=== PATIENT | female | born 1930 | race Caucasian/White ===

== ENCOUNTER 2016-06-13 10:00 | Outpatient (CLI) | payer MEDICARE, OTHER | END 2016-06-13 10:01 | disposition home or self-care (01) | DX: N39.0 Urinary tract infection, site not specified (principal) ==

== ENCOUNTER 2016-06-28 08:19 | Outpatient (CLI) | payer MEDICARE, OTHER | END 2016-06-28 08:20 | disposition home or self-care (01) | DX: Z71.3 Dietary counseling and surveillance (principal); E11.65 Type 2 diabetes mellitus with hyperglycemia; Z68.27 Body mass index [BMI] 27.0-27.9, adult ==

== ENCOUNTER 2016-07-12 10:54 | Outpatient (CLI) | payer MEDICARE, OTHER | END 2016-07-12 10:55 | disposition home or self-care (01) | LOC: NS 10:54 | PROVIDERS: ATTEND Family Medicine | DX: Z71.3 Dietary counseling and surveillance (principal); E11.65 Type 2 diabetes mellitus with hyperglycemia; Z68.26 Body mass index [BMI] 26.0-26.9, adult; Z79.4 Long term (current) use of insulin | CPT/HCPCS: 97803 ==

== ENCOUNTER 2016-10-18 12:48 | Outpatient (CLI) | payer MEDICARE, OTHER | END 2016-10-18 12:49 | disposition home or self-care (01) | LOC: NS 12:48 | PROVIDERS: ATTEND Family Medicine | DX: Z71.3 Dietary counseling and surveillance (principal); E11.65 Type 2 diabetes mellitus with hyperglycemia; Z79.4 Long term (current) use of insulin; Z68.27 Body mass index [BMI] 27.0-27.9, adult | CPT/HCPCS: 97803 ==

== ENCOUNTER 2016-11-02 09:46 | Outpatient (CLI) | payer MEDICARE, OTHER ==
--- NOTE | 2016-11-06 17:34 | Mammography Report ---
DIGITAL SCREENING MAMMOGRAM: 11/02/2016 CLINICAL INDICATION: An 86-year-old for screening. COMPARISON: 11/2015, 10/2014, 10/2013, 10/2012, 10/2011, 10/2010, 10/2009. TECHNIQUE: Routine CC and MLO projections were obtained of the breasts. The breasts again demonstrate heterogeneously dense fibroglandular parenchyma bilaterally. Punctate, typically benign calcifications are present. No suspicious masses, clustered microcalcifications, o r regions of architectural distortion are identified. IMPRESSION: BENIGN FINDINGS. RECOMMENDATION: ROUTINE ANNUAL SCREENING UNLESS OTHERWISE CLINICALLY INDICATED. BIRADS CATEGORY: 2, BENIGN FINDINGS. STANDARD QUALIFYING STATEMENTS 1. This examination was reviewed with the aid of Computed-Aided Detection (CAD). 2. A negative or benign imaging report should not delay biopsy if clinically suspicious findings are present. Consider surgical consultation if warranted. More than 5% of cancers are not identified b y imaging. 3. Dense breasts may obscure an underlying neoplasm. JOB #: [id number] EXT JOB #:[id number]
== END 2016-11-02 09:47 | disposition home or self-care (01) ==
LOC: DI.N 09:46
PROVIDERS: ATTEND Family Medicine
DX: Z12.31 Encounter for screening mammogram for malignant neoplasm of breast (principal)
CPT/HCPCS: 77067

== ENCOUNTER 2016-11-08 09:33 | Outpatient (CLI) | payer MEDICARE, OTHER | END 2016-11-08 09:34 | disposition home or self-care (01) | LOC: LAB 09:33 | PROVIDERS: ATTEND Orthopaedic Surgery | DX: Z18.12 Retained nonmagnetic metal fragments (principal) | CPT/HCPCS: 87640 ==

== ENCOUNTER 2016-11-20 05:45 | Day surgery (SDC) | payer MEDICARE, OTHER ==
[2016-11-20] MEDS ORDERED: LACTATED RINGERS 1,000 ML IV ONE (07:00)
[2016-11-20] MEDS ORDERED: BUPIVACAINE 0.25% PF 30 ML VIAL SUBQ ONE (07:55)
[2016-11-20] MEDS ORDERED: LIDOCAINE 1%-EPI 1:100000 30 ML MDV SUBQ ONE (07:55)
[2016-11-20] MEDS ORDERED: LIDOCAINE-PF 2% 10 ML AMP SUBQ ONE (08:00)
[2016-11-20] MEDS ORDERED: fentaNYL 100 MCG/2 ML VIAL IVP ONE (08:00)
[2016-11-20] MEDS ORDERED: PROPOFOL 200 MG/20 ML VIAL IVP ONE (08:00)
[2016-11-20] MEDS ORDERED: MIDAZOLAM 2 MG/2 ML VIAL IVP ONE (08:00)
[2016-11-20 08:40] VITALS: BP 128/79
--- NOTE | 2016-11-20 12:24 | OPERATIVE REPORT ---
DATE OF SURGERY: 11/20/2016 00:00:00 PREOPERATIVE DIAGNOSIS: Right carpal tunnel syndrome. POSTOPERATIVE DIAGNOSIS: Right carpal tunnel syndrome. PROCEDURE: Right carpal tunnel release. SURGEON: Jeramy Wang MD. ANESTHESIA: MAC by Fabian Garcia with local anesthesia. INDICATIONS FOR SURGERY: The patient is an 86-year-old female with increasing progressive carpal tunn el syndrome of her right hand with failure of nonoperative measures to control symptoms and increasin g clumsiness and weakness in use of the hand. She has positive nerve test and desires carpal tunnel r elease. DESCRIPTION OF OPERATIVE PROCEDURE: The patient was taken to the operating room, given a conscious se dation anesthetic in the supine position on the [facility]. A Lim stand was used as a hand tabl e. The patient's hand was sterilely prepped and draped in the standard fashion. Her carpal tunnel are a was infiltrated with Marcaine with epinephrine, approximately 8 mL. Once this was anesthetized adeq uately, a 1-1/4 inch incision was made in the palm in line with the third web, taken through skin and subcutaneous tissue and dividing transverse carpal ligament in line with the incision. The incision ended distally at the superficial arch in the palm. The proximal end of the incision was released und er direct vision up to the wrist flexion crease. The nerve itself showed mild constriction, but no ot her abnormality in the tunnel. The area was flushed and closed with interrupted 4-0 nylon suture and sterile dressings were applied. The patient was taken to the recovery room in stable condition. ESTIMATED BLOOD LOSS: Minimal. COMPLICATIONS: None. SPONGE AND NEEDLE COUNTS: Correct. JOB #: [id number] EXT JOB #:[id number]
== END 2016-11-20 05:46 | disposition home or self-care (01) ==
LOC: SDS 05:45
PROVIDERS: ATTEND Orthopaedic Surgery
PROC: 01N50ZZ Release Median Nerve, Open Approach (ICD-10-PCS; principal; 2016-11-20 07:30)
DX: G56.01 Carpal tunnel syndrome, right upper limb (principal); E11.9 Type 2 diabetes mellitus without complications
CPT/HCPCS: 64721; J7120

== ENCOUNTER 2017-06-26 13:37 | Outpatient (CLI) | payer MEDICARE, OTHER ==
--- NOTE | 2017-06-26 16:37 | DEXA Report ---
DEXA SCAN 06/26/2017 CLINICAL INDICATION: Postmenopausal. TECHNIQUE: Dual energy x-ray absorptiometry (DXA) was performed on a [employer] system. Regions measured are the AP spine, femoral neck, and, if needed, forearm. FINDINGS Data for the lumbar spine is as follows: REGION BMD (g/cm/cm) T-SCORE Z-SCORE L1 1.065 -0.5 1.0 L2 1.180 -0.2 1.4 L3 1.216 0.1 1.7 L4 1.295 0.8 2.4 L1-L4 1.196 0.1 1.7 L2-L4 1.231 0.3 1.9 NOTE: All evaluable vertebrae are used for classification. Data for the hip is as follows: REGION BMD (g/cm/cm) T-SCORE Z-SCORE Neck 0.808 -1.7 0.6 TOTAL 0.877 -1.0 1.2 NOTE: The femoral neck or total proximal femur, whichever is lowest, is used for classification. IMPRESSION WHO CLASSIFICATION BASED ON THE INTERNATIONAL REFERENCE STANDARD IS OSTEOPENIA. FRACTURE RISK IS INCREASED. RECOMMENDATION: Patients with diagnosis of osteoporosis or osteopenia should have regular bone mineral density assessment. For those eligible for Medicare, routine testing is allowed once every 2 years. Testing frequency can be increased for patients who have rapidly progressing disease or for those who are receiving medical therapy to restore bone mass. COMMENT World Health Organization (WHO) definitions for osteoporosis and osteopenia: NORMAL BMD: T-score at 1.0 or higher, fracture risk is low. OSTEOPENIA BMD: T-score between 1.0 and -2.5, fracture risk is increased. OSTEOPOROSIS BMD: T-score at 2.5 or lower, fracture risk high. National Osteoporosis Foundation recommends: 1. Obtain adequate dietary calcium (at least 1200 mg per day) and vitamin D (400 -800 international units per day). 2. Participate, as appropriate, in regular weightbearing and muscle- strengthening exercise. 3. Avoid tobacco use and reduce alcohol and caffeine intake. 4. For more detailed information see the website at www.NOF.org. TD: 06/26/2017 16:35 MONA
== END 2017-06-26 13:38 | disposition home or self-care (01) ==
LOC: DI 13:37
PROVIDERS: ATTEND Family Medicine
DX: M85.88 Other specified disorders of bone density and structure, other site (principal)
CPT/HCPCS: 77080

== ENCOUNTER 2017-11-27 09:23 | Outpatient (CLI) | payer MEDICARE, OTHER ==
--- NOTE | 2017-11-29 16:30 | Mammography Report ---
Reason: SCREENING MAMMO Procedure Date: 11/27/2017 Accession Number: [id number] / [id number] Procedure: [facility] - Screening Mammo Dig Bilat CPT Code: FULL RESULT: EXAM: Screening Mammo Dig Bilat DATE: 11/27/2017 9:48 AM CLINICAL HISTORY: 87-year-old female presents for screening mammogram. TECHNIQUE: Bilateral CC and MLO views were obtained. COMPARISON: 11/13/2016, 11/03/2015, 10/19/2014, 10/26/2013. FINDINGS: The breasts demonstrate heterogeneously dense fibroglandular parenchyma bilaterally. Typically benign calcifications of the vascular type are seen bilaterally. No suspicious masses, clustered microcalcifications, or regions of architectural distortion are identified. IMPRESSION: Benign findings RECOMMENDATION: Routine annual screening unless otherwise clinically indicated. BIRADS CATEGORY 2: Benign findings STANDARD QUALIFYING STATEMENTS: 1. This examination was not reviewed with the aid of Computer-Aided Detection (CAD). 2. A negative or benign imaging report should not delay biopsy if clinically suspicious findings are present. Consider surgical consultation if warrented. More than 5% of cancers are not identified by imaging. 3. Dense breasts may obscure an underlying neoplasm. 4. This examination was reviewed without the aid of 3D breast imaging (tomosynthesis).
== END 2017-11-27 09:24 | disposition home or self-care (01) ==
LOC: DI.N 09:23
PROVIDERS: ATTEND Radiology Diagnostic Radiology
DX: Z12.31 Encounter for screening mammogram for malignant neoplasm of breast (principal)
CPT/HCPCS: 77067

== ENCOUNTER 2018-06-24 08:57 | Outpatient (CLI) | payer MEDICARE, OTHER ==
--- NOTE | 2018-06-24 15:26 | XRAY Report ---
Reason: KNEE PAIN,RIGHT Procedure Date: 06/24/2018 Accession Number: [id number] / [id number] Procedure: XR - Knee 2 View RT CPT Code: FULL RESULT: EXAM: RIGHT KNEE RADIOGRAPHY. EXAM DATE: 06/24/2018 09:13 AM. CLINICAL HISTORY: Right knee pain. COMPARISON: None. TECHNIQUE: 2 views. FINDINGS: Bones: No fracture or bone lesion. Bones appear slightly osteopenic. Joints: Possible joint space narrowing and mild marginal spurring is seen in the joint spaces. Alignment is relatively preserved. No effusion is suggested. Soft Tissues: Chondrocalcinosis is suggested in the lateral compartment. IMPRESSION: 1. No acute osseous abnormality demonstrated. 2. Mild tricompartmental DJD changes. The Kellgren and Arnold Score is 2. The Kellgren and Arnold Scoring System (Based on AP weight-bearing view): Grade 0: no radiographic features of OA are present Grade 1: doubtful joint space narrowing (JSN) and possible osteophytic lipping Grade 2: definite osteophytes and possible JSN Grade 3: multiple osteophytes, definite JSN, sclerosis, possible bony deformity Grade 4: large osteophytes, marked JSN, severe sclerosis and definite bony deformity RADIA
== END 2018-06-24 08:58 | disposition home or self-care (01) ==
LOC: DI 08:57
PROVIDERS: ATTEND Family Medicine
DX: M17.11 Unilateral primary osteoarthritis, right knee (principal)